=== PATIENT | male | born 1970 | race Caucasian/White ===

== ENCOUNTER → 2020-05-21 16:11 | Outpatient (CLI) | payer MEDICARE, SELFPAY ==
[2020-05-21 16:59] LABS: Basophils # 0.1 K/mm3 (0-0.2); Basophils % 0.9 % (0.1-2.0); Eosinophils # 0.2 K/mm3 (0.0-0.4); Eosinophils % 1.7 % (0.1-12.0); Hematocrit 48.4 % (42.0-52.0); Hemoglobin 15.9 g/dL (14.1-18.0); Lymphocytes # 4.6 K/mm3 (0.7-4.5); Lymphocytes % 38.7 % (10-50); Mean Corpuscular HGB Conc 32.9 g/dL (31.8-35.4); Mean Corpuscular Hemoglobin 32.5 pg (27.0-31.2); Mean Platelet Volume 8.5 fl (7.4-10.4); Monocytes # 0.9 K/mm3 (0.1-1.0); Monocytes % 7.5 % (1.7-9.3); Neutrophils # 6.1 K/mm3 (1.8-7.8); Neutrophils % 51.3 % (37.0-80.0); Platelet Count 323 K/mm3 (142-424); Red Blood Count 4.89 M/mm3 (4.60-6.20); Red Cell Distribution Width 13.7 % (11.5-17.5); White Blood Count 11.8 K/mm3 (4.8-10.8)
[2020-05-21 17:07] LABS: Alanine Aminotransferase 45 U/L (12-78); Albumin Level 4.5 g/dl (3.5-5.0); Albumin/Globulin Ratio 1.4 (1.1-1.8); Alkaline Phosphatase 80 U/L (38-126); Anion Gap 14.7 mEq/L (5-15); Aspartate Amino Transferase 28 U/L (17-59); Bilirubin,Total 0.6 mg/dl (0.2-1.3); Blood Urea Nitrogen 10 mg/dl (9-20); Calcium 10.1 mg/dl (8.4-10.2); Carbon Dioxide 26 mmol/L (22.0-30.0); Chloride 103 mmol/L (98-107); Chol/HDL Ratio 2.8 (1-3.5); Cholesterol 141 mg/dl (140-200); Estimated Glomerular Filt Rate 102 ml/min (>60); GFR (African American) 123 ML/MIN (>60); Globulin 3.2 g/dL (1.3-3.2); Glucose 98 mg/dl (74-100); HDL Cholesterol 51 mg/dl (40-60); Potassium 4.7 mmoL/L (3.5-5.1); Sodium 139 mmol/L (136-145); Total Protein,Serum 7.7 g/dl (6.3-8.2); Triglycerides 127 mg/dl (30-150); VLDL Cholesterol 25 mg/dL (0-40)
[2020-05-21 17:18] LABS: Direct LDL Cholesterol 67.81 mg/dL (100-129)
[2020-05-21 19:13] LABS: T4 (Thyroxine) 9.9 ug/dl (5.53-11.0)
[2020-05-21 19:27] LABS: Thyroid Stimulating Hormone 2.96 uIU/mL (0.465-4.68)
== END ==
PROVIDERS: Visit Provider Family Medicine
DX: I25.10 Atherosclerotic heart disease of native coronary artery without angina pectoris (principal); R53.83 Other fatigue; G51.8 Other disorders of facial nerve
CPT/HCPCS: 80053; 80061; 84436; 84443; 85025

== ENCOUNTER → 2020-06-03 09:21 | Outpatient (CLI) | payer MEDICARE, SELFPAY ==
--- NOTE | 2020-06-03 09:21 | CT_ITS ---
PROCEDURE: CT CHEST W CON CLINCAL INDICATION: Soa asbestos exposure Chest pressure Pain bilateral cough smoker COMPARISON: No exams were available for comparison TECHNIQUE: IV Contrast: 75ml Isovue 370 Axial images obtained with sagittal and coronal reformats. All CT scans at the facility use one or more dose reduction, viz: automated exposure control, ma/kV adjustment per patient size (including targeted exams where dose is matched to indication, i.e. head), or iterative reconstruction technique. FINDINGS: HEART AND MEDIASTINAL STRUCTURES: Coronary artery calcifications and/or stents are present. No mediastinal or hilar mass. LUNGS AND PLEURAL SPACES: COPD changes. There is some pleural thickening and pleural calcification in the right upper lobe laterally. There is some minimal scarring in the lung apices. Old granulomatous disease present with calcified granulomas. No diaphragmatic calcified plaques. No effusions. No suspicious pulmonary nodules. BONY STRUCTURES: No acute bony abnormalities apparent. UPPER ABDOMEN: Mild atheromatous changes involve the ostium of the celiac artery with less than 50 percent stenosis. There is a 1.6 cm cystic lesion in the tail the pancreas. ADDITIONAL FINDINGS: No other significant abnormalities. IMPRESSION: 1. COPD with scattered areas of scarring. There is some pleural thickening noted in the right upper lobe laterally with calcification present at this region. This is not typical appearance for a calcified pleural plaque as there is fat density between the calcification in the pleura. Consider follow-up to confirm stability in this patient with history of asbestos exposure. 2. Indeterminate 1.6 cm cystic lesion of the tail the pancreas. MRI without and with gadolinium enhancement with MRCP suggested for further evaluation Dictated by: Rafael Jack MD 06/05/2020 09:35 Rafael Jack MD in [facility] 06/05/2020 09:35
== END ==
LOC: RAD 09:21
PROVIDERS: PCP Family Medicine; Visit Provider Family Medicine
DX: R91.1 Solitary pulmonary nodule (principal); Z77.090 Contact with and (suspected) exposure to asbestos
CPT/HCPCS: 71260; Q9967

== ENCOUNTER → 2020-07-02 09:08 | Outpatient (CLI) | payer MEDICARE, SELFPAY ==
--- NOTE | 2020-07-02 09:09 | MR_ITS ---
PROCEDURE: MR ABDOMEN WO/W CON CLINICAL INDICATION: pancreas lesion seen on CT chest Abnormal CT scan 06-03-20. Complains of diarrhea with nausea x3-4yrs. 15ml prohance given. Lot:[id number] exp: Oct 2022. COMPARISON: CT CT CHEST W CON from 06/03/2020 TECHNIQUE: Routine multiplanar multi echo sequences are performed without and with gadolinium enhancement. MRCP images also performed. FINDINGS: There are scattered small cystic areas in the liver which are nonspecific. The spleen has an unremarkable appearance. A cystic lesion is present in the extreme tail of the pancreas measuring 14 mm by 14 mm. This is isointense on T1 and hyperintense on the T2 weighted images without obvious internal septations. There is a small peripheral capsule at this cystic area with similar enhancement as compared to the pancreas. The MRCP images are degraded by motion artifact. Pancreatic duct is not dilated cannot confirm if there is connection to the pancreatic duct due to the motion artifact. The CT scan does not demonstrate any calcification of the capsule. The gallbladder and biliary tree have an unremarkable appearance. There is a 7 mm right renal cyst. The adrenal glands have an unremarkable appearance. IMPRESSION: 14 mm cystic lesion in the pancreatic tail without obvious internal septations. There is a small thin capsule around the lesion at approximately 2 mm in thickness. Differential diagnosis would include a pseudo cyst, pancreatic cyst or an IPMN. Mucinous cystic pancreatic neoplasm could have this appearance however, this would be extremely rare in a male . Suggest [address] follow-up to confirm short term stability. Dictated by: Rafael Jack MD 07/04/2020 08:29 Rafael Jack MD in [facility] 07/04/2020 08:29
--- NOTE | 2020-07-02 09:25 | XR_ITS ---
PROCEDURE: XR ORBIT BILATERAL MIN 4V CLINICAL INDICATION: R/O METAL IN EYES PRIOR TO MRI COMPARISON: No exams were available for comparison TECHNIQUE: AP views are obtained of the orbits with the patient looking up and down. A lateral view is also obtained. FINDINGS: No radio opaque foreign bodies evident. No radio opaque foreign bodies evident within the orbits. There are postsurgical changes with surgical mesh and screws along the infraorbital rim as well as the medial and lateral wall of the right maxillary sinus. IMPRESSION: No radio opaque orbital foreign body identified. Dictated by: Rafael Jack MD 07/02/2020 09:54 Rafael Jack MD in [facility] 07/02/2020 09:54
== END ==
LOC: RAD 09:09
PROVIDERS: PCP Family Medicine; Visit Provider Family Medicine
DX: K86.9 Disease of pancreas, unspecified (principal); H05.53 Retained (old) foreign body following penetrating wound of bilateral orbits
CPT/HCPCS: 70200; 74183; 76376; A9576

== ENCOUNTER → 2020-09-20 13:54 | Outpatient (CLI) | payer MEDICARE, SELFPAY ==
[2020-09-20 14:34] LABS: Amphetamine/Metha Screen,Urine Negative ng/ml (<1000)
[2020-09-20 14:35] LABS: Barbiturates Screen,Urine Negative ng/ml (<200); Benzodiazepines Screen,Urine Negative ng/ml (<200)
[2020-09-20 14:36] LABS: Cannabinoid Screen,Urine Negative ng/ml (<50)
[2020-09-20 14:37] LABS: Cocaine Screen,Urine Negative ng/ml (<300); Methadone Screen,Urine Negative ng/ml (<300)
[2020-09-20 14:38] LABS: Opiate Screen,Urine Negative ng/ml (<300)
[2020-09-20 14:41] LABS: Phencyclidine Screen,Urine Negative ng/ml (<25)
== END ==
PROVIDERS: Visit Provider Family Medicine
DX: Z79.899 Other long term (current) drug therapy (principal)
CPT/HCPCS: 80305

== ENCOUNTER → 2020-11-18 09:27 | Outpatient (CLI) | payer MEDICARE, SELFPAY ==
--- NOTE | 2020-11-18 09:28 | MR_ITS ---
PROCEDURE INFORMATION: Exam: MR Abdomen Without and With Contrast Exam date and time: 11/18/2020 9:28 AM Age: 50 years old Clinical indication: Abnormal findings; Abnormal radiologic finding of the abdomen; Radiologic exam and body structure: Mri; Additional info: Pancreas cyst/lesion. F/u abnormal mri 07-02-20. Diarrhea. 14ml prohance given. TECHNIQUE: Imaging protocol: MR of the abdomen without and with intravenous contrast. Contrast material: PROHANCE; Contrast volume: 14 ml; Contrast route: IV; COMPARISON: MR ABDOMEN WO/W CON 07/02/2020 9:19 AM FINDINGS: Liver: An ill-defined focus of enhancement is seen in the liver in subsegment 7. It measures on the order of 15 mm. It correlates with the finding seen on the prior MR and CT from June and May 2020 respectively. However, motion artifact limits further characterization. Gallbladder and bile ducts: Unremarkable. No stones. No ductal dilation. Pancreas: There is a cystic lesion arising from the tail the pancreas with a thin T1 intense rim. No change in appearance. No change in size, it again measures about 14 x 14 mm. Spleen: Unremarkable. No splenomegaly. Adrenal glands: Unremarkable. No mass. Kidneys and ureters: Unchanged 9 mm cyst in the right kidney toward the lower pole. Stomach and bowel: Visualized stomach and intestines are unremarkable. Intraperitoneal space: No free fluid. Arteries: No abdominal aortic aneurysm. Bones/joints: Unremarkable. Soft tissues: Unremarkable. IMPRESSION: 1. Stable 14 mm cystic lesion arising from tail the pancreas. Reimaging every 1 year for 5 years is recommended. (Reference: Allegra, 2017) 2. An ill-defined enhancing lesion is seen in hepatic subsegment 7. Further characterization with CT liver protocol is recommended because motion artifact due to its location under the diaphragm is limiting its characterization on MR. References: Allegra DAILY, et al. Management of Incidental Pancreatic Cysts: A White Paper of the ACR Incidental Findings Committee. J Am Jluis Radiol. 2017;14(7):911-923.
== END ==
LOC: RAD 09:28
PROVIDERS: PCP Family Medicine; Visit Provider Family Medicine
DX: K86.9 Disease of pancreas, unspecified (principal)
CPT/HCPCS: 74183; 76376; A9576

== ENCOUNTER → 2020-12-18 09:30 | Outpatient (CLI) | payer MEDICARE, SELFPAY ==
--- NOTE | 2020-12-18 09:31 | CT_ITS ---
PROCEDURE INFORMATION: Exam: CT Abdomen Without And With Contrast, Liver Exam date and time: 12/18/2020 9:31 AM Age: 50 years old Clinical indication: Abnormal findings; Abnormal radiologic finding of the abdomen; Radiologic exam and body structure: Mri abdomen; Additional info: Liver lesion/ abn mri TECHNIQUE: Imaging protocol: Computed tomography images of the abdomen without and with intravenous contrast. Radiation optimization: All CT scans at this facility use at least one of these dose optimization techniques: automated exposure control; mA and/or kV adjustment per patient size (includes targeted exams where dose is matched to clinical indication); or iterative reconstruction. Contrast material: ISOVUE; Contrast volume: 75 ml; Contrast route: IV; COMPARISON: 1. MR ABDOMEN WO/W CON 11/18/2020 10:34 AM 2. MR ABDOMEN WO/W CON 07/02/2020 9:19:[address] CHEST W CON 06/03/2020 9:42:41 AM FINDINGS: Liver: No liver mass, the enhancing lesion or region in the right lobe of the liver seen on the prior MRI is not discretely identified. Gallbladder and bile ducts: Normal. No calcified stones. No ductal dilation. Pancreas: Stable examination without interval change. Benign 1.6 cm cyst in the pancreatic tail. No pancreatic atrophy or ductal dilatation. Spleen: Normal. No splenomegaly. Adrenals: Normal. No mass. Kidneys and ureters: Normal. No hydronephrosis. Stomach and bowel: Normal. No obstruction. No mucosal thickening. Intraperitoneal space: Unremarkable. No free air. No significant fluid collection. Lymph nodes: Unremarkable. No enlarged lymph nodes. Vasculature: Unremarkable. No abdominal aortic aneurysm. Bones/joints: Unremarkable. No acute fracture. No dislocation. Soft tissues: Unremarkable. IMPRESSION: Stable benign cyst in the distal pancreatic tail. No hepatic mass.
== END ==
LOC: RAD 09:31
PROVIDERS: PCP Family Medicine; Visit Provider Family Medicine
DX: K76.9 Liver disease, unspecified (principal)
CPT/HCPCS: 74170; Q9967

== ENCOUNTER → 2021-09-10 07:08 | Outpatient (CLI) | payer MEDICARE, MEDICAID, SELFPAY ==
[2021-09-09 18:56] LABS: Hemoglobin A1C 5.6 % (4.0-6.0)
== END ==
PROVIDERS: PCP Family Medicine; Visit Provider Family Medicine
DX: E11.9 Type 2 diabetes mellitus without complications (principal)
CPT/HCPCS: 83036

== ENCOUNTER → 2022-05-08 06:29 | Outpatient (CLI) | payer MEDICARE, MEDICAID, SELFPAY ==
--- NOTE | 2022-05-08 06:36 | NM_ITS ---
APPROVED REPORT Exam: Nuclear Stress Test Indication: chest pain..short of breath Patient Location: Outpatient Stress Tech: Gaby Enriquez SC Tech:GAIL Knutson RT(R)(N) Ht: 5 ft 7 in Wt: 165 lbs HR: 60 bpm BP: 148/91 mmHg BSA: 1.86 m2 TID: 1.12 BMI: 25.8 History: chest pain..short of breath Procedure: Patient exercised on Jose L protocol 9:44 minutes and sec, resting heart rate 60 bpm, resting blood pressure 148/91 mmHg, with exercise maximum heart rate achived was 134 bpm which is 80 % of the maximum predicted heart rate and blood pressure was 190/92 mmHg. Patient has Adequate exercise capacity, achieved 10.0 METs of workload on treadmill, the blood pressure response to exercise was Adequate. Electrocardiogram Resting electrocardiogram shows sinus rhythm, with exercise there is no 1.[address] segment depression noted from the baseline EKG. The EKG portion of the exercise Myoview was nondiagnostic as patient did not achieve the target heart rate. Cardiac Stress and Resting SPECT Images: Cardiac Stress and Resting SPECT images were obtained using technetium 99m Myoview 32.5 mCi stress and 10.43 mCi at rest. Gated SPECT analysis of segmental wall motion and calculation of the ejection fraction also done. Prone images were also obtained. Cardiac stress and rest SPECT images show partially reversible defect involving the inferior wall, consistent with mixed ischemia and scar, computer derived ejection fraction is 52% with mild inferior wall hypokinesis, right ventricle is moderately enlarged with normal contractility. Conclusion: 1. The EKG portion of the exercise Myoview was nondiagnostic as patient did not achieve the target heart rate, patient has good exercise capacity achieved 10 METS of workload on treadmill, the blood pressure response to exercise was adequate, patient complained shortness of breath and chest tightness with peak exercise. 2. Scintigraphic evidence of mixed ischemia and scar involving the inferior wall, computer derived ejection fraction is 52% with segmental wall motion abnormality described above, right ventricle is moderately enlarged with normal contractility. 3. Abnormal exercise Myoview study. Electronically signed by : Kartik White MD 05/08/2022 11:47:00
--- NOTE | 2022-05-08 07:33 | CA_ITS ---
APPROVED REPORT EXAM: Comprehensive 2D, Doppler, and color-flow Echocardiogram Career Consultant: Rosalba Henriquez RDCS Ht: 5 ft 7 in Wt: 164lbs BSA: 1.86 BP: 152/95 mmHg Indications: CP CAD HTN 2D Dimensions LVOT 1.99 cm (M/F) 1.5-2.5 M-Mode Dimensions RVDd 2.49 cm (0.9-2.6) LA Diam 3.47 cm (1.9-4.0) LVDd 5.35 cm (3.5-5.7) Ao Diam 3.35 cm (2.0-3.7) LVDs 4.30 cm (3.5-5.7) IVSd 0.76 cm (0.6-1.1) PWd 0.76 cm (0.6-1.1) EF (Teich) 39.90% FS 19.60% EDV (Teich) 138.30 mL ESV (Teich) 83.10 mL LV Diastology E Decel Time 170.00 (160-240 msec) E/A Ratio 1.4 MED E' 9.00 (< 7 cm/sec) E'/MED E' Ratio 8.06 (>14) LAT E' 10.80 (<10 cm/sec) E/LAT E' Ratio 6.71 (>14) Mitral Valve MV E Max Blas. 73.00 (40-130 cm/s) MV A Velocity 53.00 (40-130 cm/s) E/A Ratio 1.37 MV Decel. Time 170.00 (160-240 ms) MV PHT 50.00 ms Left Ventricle Left atrium is normal size, left ventricle is normal size, estimated ejection fraction 50% with no regional wall motion abnormality, diastolic parameters are within normal range. Right Ventricle Right atrium and right ventricular normal size and contractility. Aortic Valve Aortic valve is grossly normal and there is no aortic stenosis or aortic insufficiency. Mitral Valve Mitral valve is grossly normal, there is trace mitral regurgitation. Tricuspid Valve Tricuspid valve grossly normal, there is trace tricuspid regurgitation, tricuspid regurgitation jetinadequate for calculation of the right ventricular systolic pressure. Pulmonic Valve Pulmonic valve is poorly visualized. Great Vessels Aortic root is normal size. Inferior vena cava is poorly visualized. Pericardium No significant pericardial effusion noted. Conclusion 1. Normal left ventricular size, preserved left ventricular systolic function, estimated ejection fraction 50% with no regional wall motion abnormality. Diastolic parameters are within normal range. 2. Trace mitral and tricuspid regurgitation. 3. No significant pericardial effusion noted. 4. Inferior vena cava is poorly visualized. Electronically signed by : Kartik White MD 05/08/2022 18:20:24
--- NOTE | 2022-05-08 08:06 | CA_ITS ---
APPROVED REPORT Exam: Exercise Treadmill Technologist: Gaby Weir, Ht: 5 ft 7 in Wt: 164 lbs BSA: 1.86 m2 HR: 56 bpm BP: 149/75 mmHg Medical History Medications: Omeprazole,,,,, Aspirin,,,,, Losartan,,,,, VitB12,,,,, RoSUVASTATIN,,,,, Prasugrel,,,,, Clobetasol,,,,, Hydrocodone-Acetaminophen,,,,, Furosemide,,,,, Stress Test Details Test: Jose L HR Resting HR: 60 bpm Max Heart Rate (APMHR): 167.611054 bpm Max HR Achieved: 134 bpm Target HR (85% APMHR): 141.601376 bpm % of APMHR: 80.24 Recovery HR: 72 bpm BP Resting BP: 148/91 mmHg Max BP: 190/92 mmHg Recovery BP: 141.0/73.0 mmHg ECG Resting ECG: sinus bradycardia Clinical Exercise duration: 09:44 min Highest Stage Achieved: III Exercise capacity: 10.1 METs Stress ECG Conclusion Test stopped due to: SOA/leg fatigue Symptoms: SOA & chest pain with peak exercise Arrhythmias/Ectopy: PAC noted. lots of motion artifact. Test Summary REST . . . . . . . Standing REST 01:02 0.0 0.0 60 . 148/ 91 . . Stage 1 01:00 10.0 1.7 84 . . . . Stage 1 02:00 10.0 1.7 90 . . . . Stage 1 03:00 10.0 1.7 92 . . . . Stage 2 01:00 12.0 2.5 94 . . . . Stage 2 02:00 12.0 2.5 95 . 162/ 84 . . Stage 2 03:00 12.0 2.5 98 . 162/ 84 . . Stage 3 01:00 14.0 3.4 103 . . . . Stage 3 02:00 14.0 3.4 117 . . . . Stage 3 03:00 14.0 3.4 105 . 190/ 92 . . Stage 4 . . . . . . . Myoview Injected Stage 4 00:44 16.0 4.2 114 . . . Stop exercise at 09:44 RECOVERY 01:00 0.0 0.0 94 . . . . RECOVERY 02:00 0.0 0.0 91 . 156/ 90 . . RECOVERY 03:00 0.0 0.0 80 . 152/ 75 . . RECOVERY 03:48 0.0 0.0 74 . 141/ 73 . . Electronically signed by : Kartik White MD 05/08/2022 11:42:36
--- NOTE | 2022-05-08 09:27 | XR_ITS ---
FINAL REPORT CLINICAL HISTORY: cp/sob FINDINGS: 2 views of the chest were obtained . The heart is normal in size. Calcified left hilar lymph node is seen. The mediastinum is within normal limits. There is a calcified granuloma in the left midlung. The lungs are otherwise clear. There is no pneumothorax. Osseous structures are unremarkable. IMPRESSION: No acute cardiopulmonary process. Reviewed, Interpreted and Dictated by Branden Calvillo MD Transcribed by Monica Malagon Authenticated and . [facility]
[2022-05-08 10:32] LABS: Basophils # 0.1 K/mm3 (0-0.2); Basophils % 1.2 % (0.1-2.0); Eosinophils # 0.1 K/mm3 (0.0-0.4); Eosinophils % 1.3 % (0.1-12.0); Hematocrit 46.3 % (42.0-52.0); Hemoglobin 14.9 g/dL (14.1-18.0); Lymphocytes # 3.6 K/mm3 (0.7-4.5); Lymphocytes % 32.5 % (10-50); Mean Corpuscular HGB Conc 32.2 g/dL (31.8-35.4); Mean Corpuscular Hemoglobin 30.7 pg (27.0-31.2); Mean Corpuscular Volume 95.4 fl (80-94); Mean Platelet Volume 8.3 fl (7.4-10.4); Monocytes # 0.6 K/mm3 (0.1-1.0); Monocytes % 5.6 % (1.7-9.3); Neutrophils # 6.6 K/mm3 (1.8-7.8); Neutrophils % 59.4 % (37.0-80.0); Platelet Count 295 K/mm3 (142-424); Red Blood Count 4.85 M/mm3 (4.60-6.20); Red Cell Distribution Width 13.2 % (11.5-17.5); White Blood Count 11.1 K/mm3 (4.8-10.8)
[2022-05-08 11:19] LABS: Alanine Aminotransferase 34 U/L (12-78); Albumin Level 4.4 g/dl (3.5-5.0); Alkaline Phosphatase 75 U/L (38-126); Anion Gap 10.8 mEq/L (5-15); Aspartate Amino Transferase 23 U/L (17-59); Bilirubin,Direct 0.2 mg/dl (0.0-0.4); Bilirubin,Indirect 0.5 mg/dL (0.0-0.9); Bilirubin,Total 0.7 mg/dl (0.2-1.3); Bilirubin,Unconjugated 0.5 mg/dL (0.0-1.1); Blood Urea Nitrogen 11 mg/dl (9-20); Calcium 9.3 mg/dl (8.4-10.2); Carbon Dioxide 28 mmol/L (22.0-30.0); Chloride 105 mmol/L (98-107); Chol/HDL Ratio 2.8 (1-3.5); Cholesterol 111 mg/dl (140-200); Estimated Glomerular Filt Rate 118 ml/min (>60); GFR (African American) 143 ML/MIN (>60); Glucose 103 mg/dl (74-100); HDL Cholesterol 40 mg/dl (40-60); Potassium 4.8 mmoL/L (3.5-5.1); Sodium 139 mmol/L (136-145); Total Protein,Serum 7.2 g/dl (6.3-8.2); Triglycerides 138 mg/dl (30-150); VLDL Cholesterol 28 mg/dL (0-40)
[2022-05-08 11:35] LABS: Free T4 (Free Thyroxine) 0.92 ng/dl (0.78-2.19)
[2022-05-08 11:49] LABS: Prostate Specific Ag Screen 0.7 ng/ml (0.0-4.0)
[2022-05-08 12:24] LABS: Vitamin B12 717 pg/mL (239-931)
[2022-05-08 12:25] LABS: Folate 7.68 ng/mL
[2022-05-20 00:04] LABS: 1,25 Dihydroxy Vitamin D 42 pg/mL (.); 1,25-Dihydroxy, Vitamin D-2 <10 pg/mL (.); 1,25-Dihydroxy, Vitamin D-3 40 pg/mL (.)
== END ==
PROVIDERS: PCP Family Medicine; Visit Provider Nurse Practitioner Family
DX: R06.02 Shortness of breath; E78.2 Mixed hyperlipidemia; K86.2 Cyst of pancreas; Z72.0 Tobacco use; Z12.5 Encounter for screening for malignant neoplasm of prostate; I20.8 Other forms of angina pectoris
CPT/HCPCS: 36415; 71046; 78452; 80048; 80061; 80076; 82607; 82652; 82746; 84439; 84443; 85025; 93017; 93306; G0103; A9502

== ENCOUNTER 2022-10-06 07:52 | Day surgery (SDC) | payer MEDICARE, MEDICAID, SELFPAY ==
[2022-10-06] VITALS (13 sets, daily range): BP systolic 100–145; BP diastolic 53–94; PULSE 58–81; RESP 15–19; O2SAT 90–98; BMI 25.7
--- NOTE | 2022-10-06 07:39 | IR_ITS ---
APPROVED REPORT Patient Location: Outpatient Charge Poster: GAIL Farias RT (R) PROCEDURES Left heart catheterization Left ventriculogram Selective coronary angiogram INDICATION Abnormal Myoview, Angina pectoris Informed consent was obtained prior to the procedure. COMPLICATIONS None Estimated Blood Loss: Less than 10 mls TECHNIQUE One percent lidocaine used to anesthetize the right anterior aspect of the wrist. The right radial artery was accessed via the Seldinger technique. A 6 Palestinian sheath was placed in the right radial artery. 150 mg magnesium sulfate, 800 mcg of nitroglycerin, 1mg Lidocaine and 5000 U Heparin were given through the arterial sheath. The papa catheter was also used to perform left heart catheterization, left ventriculogram and selective coronary angiogram. At the end of the procedure the sheath was removed good hemostasis was achieved using Traclet band, patient was transferred to the postop holding area in stable condition. ANGIOGRAPHIC RESULTS The left main artery Normal The left anterior descending artery Has proximal 10% luminal irregularities with a large stent in the mid segment which has 40% eccentric in-stent restenosis. There is excellent proximal distal transitioning. The entire vessel has slow MATT II flow The circumflex artery Is likely a codominant vessel and has proximal 10% luminal irregularities with 20 and 30% stenoses in a large second obtuse marginal artery. The first obtuse marginal artery is small to medium and has a proximal eccentric 40% stenosis The right coronary artery Is codominant and has 10 contiguous stenting from the ostial through the distal segment. The ostial segment has an eccentric 40% stenosis while the mid vessel has a concentric 40 to 50% stenosis. There is excellent distal transitioning. MATT II flow was present down the vessel The RICHARDSON ventriculogram reveals Normal 65% The left ventricular end-diastolic pressure 20 mmHg IMPRESSION Coronary disease as described above Slow flow down the LAD and right coronary artery consistent with endothelial dysfunction Elevated LVEDP Patient angina stems from microvascular etiologies secondary to endothelial dysfunction as result of tobacco usage PLAN 1. Add Norvasc 2.5 mg daily 2. Start Ranexa 500 twice daily and uptitrate as tolerated 3. Aggressive risk factor modification 4. It is important for patient to discontinue tobacco usage which is the likely etiology for the ongoing angina Electronically signed by : Rigoberto Stovall MD 10/06/2022 13:50:06
[2022-10-06 08:52] LABS: Basophils # 0.1 K/mm3 (0-0.2); Basophils % 1.5 % (0.1-2.0); Eosinophils # 0.2 K/mm3 (0.0-0.4); Eosinophils % 2.4 % (0.1-12.0); Hematocrit 49.8 % (42.0-52.0); Hemoglobin 16.1 g/dL (14.1-18.0); Lymphocytes # 3.6 K/mm3 (0.7-4.5); Lymphocytes % 44.5 % (10-50); Mean Corpuscular HGB Conc 32.2 g/dL (31.8-35.4); Mean Corpuscular Hemoglobin 30.4 pg (27.0-31.2); Mean Corpuscular Volume 94.2 fl (80-94); Monocytes # 0.7 K/mm3 (0.1-1.0); Monocytes % 8.4 % (1.7-9.3); Neutrophils # 3.4 K/mm3 (1.8-7.8); Neutrophils % 43.1 % (37.0-80.0); Platelet Count 248 K/mm3 (142-424); Red Blood Count 5.28 M/mm3 (4.60-6.20); Red Cell Distribution Width 13.4 % (11.5-17.5)
[2022-10-06 08:55] LABS: Chloride 102 mmol/L (98-107); Potassium 4.3 mmoL/L (3.5-5.1); Sodium 139 mmol/L (136-145)
[2022-10-06 08:58] LABS: Anion Gap 11.3 mEq/L (5-15); Blood Urea Nitrogen 9 mg/dl (9-20); Calcium 9.2 mg/dl (8.4-10.2); Carbon Dioxide 30 mmol/L (22.0-30.0); Creatinine Clearance Estimated 128 mL/min (50-200); Estimated Glomerular Filt Rate 118 ml/min (>60); GFR (African American) 143 ML/MIN (>60); Glucose 118 mg/dl (74-100)
== END 2022-10-06 13:11 | disposition home or self-care (01) ==
PROVIDERS: PCP Family Medicine; Visit Provider Internal Medicine
DX: I25.119 Atherosclerotic heart disease of native coronary artery with unspecified angina pectoris (principal); E78.5 Hyperlipidemia, unspecified; I10 Essential (primary) hypertension; I25.10 Atherosclerotic heart disease of native coronary artery without angina pectoris; R00.1 Bradycardia, unspecified; R06.02 Shortness of breath; R42 Dizziness and giddiness; R94.30 Abnormal result of cardiovascular function study, unspecified; Z95.5 Presence of coronary angioplasty implant and graft; F17.210 Nicotine dependence, cigarettes, uncomplicated; E78.2 Mixed hyperlipidemia
CPT/HCPCS: 80048; 85025; 93458; 99152; C1725; C1769; J1644; Q9967

== ENCOUNTER → 2022-11-12 23:36 | Outpatient (CLI) | payer MEDICARE, MEDICAID, SELFPAY ==
[2022-11-14 10:12] LABS: Testosterone,Total 581 ng/dL (264-916)
== END ==
PROVIDERS: PCP Family Medicine; Visit Provider Family Medicine
DX: R68.82 Decreased libido (principal)
CPT/HCPCS: 84403

== ENCOUNTER → 2023-01-08 23:26 | Outpatient (CLI) | payer MEDICARE, MEDICAID, SELFPAY ==
[2023-01-08 20:04] LABS: Barbiturates Screen,Urine Negative ng/ml (<200)
[2023-01-08 20:05] LABS: Amphetamine/Metha Screen,Urine Negative ng/ml (<1000); Cannabinoid Screen,Urine Negative ng/ml (<50)
[2023-01-08 20:06] LABS: Benzodiazepines Screen,Urine Negative ng/ml (<200); Methadone Screen,Urine Negative ng/ml (<300)
[2023-01-08 20:07] LABS: Cocaine Screen,Urine Negative ng/ml (<300)
[2023-01-08 20:08] LABS: Phencyclidine Screen,Urine Negative ng/ml (<25)
[2023-01-08 20:09] LABS: Opiate Screen,Urine Positive ng/ml (<300)
== END ==
PROVIDERS: PCP Family Medicine; Visit Provider Family Medicine
DX: Z79.899 Other long term (current) drug therapy (principal)
CPT/HCPCS: 80305

== ENCOUNTER → 2023-03-08 23:57 | Outpatient (CLI) | payer MEDICARE, MEDICAID, SELFPAY ==
[2023-03-08 19:56] LABS: Benzodiazepines Screen,Urine Negative ng/ml (<200)
[2023-03-08 19:57] LABS: Amphetamine/Metha Screen,Urine Negative ng/ml (<1000)
[2023-03-08 19:58] LABS: Barbiturates Screen,Urine Negative ng/ml (<200); Methadone Screen,Urine Negative ng/ml (<300)
[2023-03-08 19:59] LABS: Cannabinoid Screen,Urine Negative ng/ml (<50)
[2023-03-08 20:00] LABS: Cocaine Screen,Urine Negative ng/ml (<300)
[2023-03-08 20:01] LABS: Opiate Screen,Urine Positive ng/ml (<300); Phencyclidine Screen,Urine Negative ng/ml (<25)
== END ==
PROVIDERS: PCP Family Medicine; Visit Provider Family Medicine
DX: Z79.899 Other long term (current) drug therapy (principal)
CPT/HCPCS: 80305

== ENCOUNTER 2023-04-28 19:17 | Outpatient (CLI) | payer MEDICARE, MEDICAID, SELFPAY ==
[2023-04-28 18:27] LABS: Basophils # 0.1 K/mm3 (0-0.2); Basophils % 1.2 % (0.1-2.0); Eosinophils # 0.3 K/mm3 (0.0-0.4); Eosinophils % 2.3 % (0.1-12.0); Hematocrit 48.8 % (42.0-52.0); Hemoglobin 16.2 g/dL (14.1-18.0); Lymphocytes # 3.9 K/mm3 (0.7-4.5); Lymphocytes % 35.7 % (10-50); Mean Corpuscular HGB Conc 33.3 g/dL (31.8-35.4); Mean Corpuscular Hemoglobin 32.4 pg (27.0-31.2); Mean Corpuscular Volume 97.5 fl (80-94); Mean Platelet Volume 9.5 fl (7.4-10.4); Monocytes # 0.8 K/mm3 (0.1-1.0); Monocytes % 7.3 % (1.7-9.3); Neutrophils # 5.8 K/mm3 (1.8-7.8); Neutrophils % 53.4 % (37.0-80.0); Platelet Count 247 K/mm3 (142-424); Red Cell Distribution Width 13.3 % (11.5-17.5); White Blood Count 10.8 K/mm3 (4.8-10.8)
[2023-04-28 18:34] LABS: Alanine Aminotransferase 26 U/L (12-78); Albumin Level 4.4 g/dl (3.5-5.0); Albumin/Globulin Ratio 1.5 (1.1-1.8); Alkaline Phosphatase 95 U/L (38-126); Anion Gap 9.1 mEq/L (5-15); Aspartate Amino Transferase 27 U/L (17-59); Bilirubin,Total 0.8 mg/dl (0.2-1.3); Blood Urea Nitrogen 8 mg/dl (9-20); Calcium 9.4 mg/dl (8.4-10.2); Carbon Dioxide 27 mmol/L (22.0-30.0); Chloride 106 mmol/L (98-107); Chol/HDL Ratio 3.6 (1-3.5); Cholesterol 122 mg/dl (140-200); Estimated Glomerular Filt Rate 101 ml/min (>60); GFR (African American) 122 ML/MIN (>60); Glucose 114 mg/dl (74-100); HDL Cholesterol 34 mg/dl (40-60); Potassium 4.1 mmoL/L (3.5-5.1); Sodium 138 mmol/L (136-145); Total Protein,Serum 7.4 g/dl (6.3-8.2); Triglycerides 133 mg/dl (30-150); VLDL Cholesterol 27 mg/dL (0-40)
[2023-04-28 18:45] LABS: Direct LDL Cholesterol 70.62 mg/dL (100-129)
== END 2023-04-28 23:59 ==
LOC: LAB.DROPOF 19:18
PROVIDERS: PCP Family Medicine; Visit Provider Family Medicine
DX: R53.83 Other fatigue (principal); E78.5 Hyperlipidemia, unspecified; Z79.899 Other long term (current) drug therapy; Z12.5 Encounter for screening for malignant neoplasm of prostate
CPT/HCPCS: 80053; 80061; 85025

== ENCOUNTER 2023-06-02 14:57 | Outpatient (CLI) | payer MEDICARE, MEDICAID, SELFPAY ==
--- NOTE | 2023-06-02 14:57 | CT_ITS ---
FINAL REPORT TECHNIQUE: Axial CT images of the chest were obtained without contrast. Low-dose protocol was utilized. This study was performed with techniques to keep radiation doses as low as reasonably achievable (ALARA). Individualized dose reduction techniques using automated exposure control or adjustment of mA and/or kV according to the patient's size were employed. CLINICAL HISTORY: lung cancer screening CURRENT SMOKER, 1 PPD X 35 YEARS COMPARISON: None FINDINGS: CT CHEST WITHOUT, LOW DOSE SCREENING CT Di Vol: 2.90 mGy DLP: 107.33 mGy*cm There is no axillary, mediastinal, or hilar adenopathy. The heart size is normal. There is no pleural or pericardial effusion. The lung windows show mild emphysema and mild scarring. There is right lateral pleural thickening and pleural calcification. There are several calcified granulomas in the left lung. There is a 3 mm pleural-based nodule in the left lower lobe best seen on image 43. Limited images of the upper abdomen demonstrate no acute finding. IMPRESSION: LR Category 2: 12 month follow-up low-dose chest CT is recommended. Reviewed, Interpreted and Dictated by Sarthak Yanez III, MD Transcribed by Kathy Quinn Authenticated and [facility]
== END 2023-06-02 23:59 ==
LOC: RAD 14:57
PROVIDERS: PCP Family Medicine; Visit Provider Family Medicine
DX: F17.210 Nicotine dependence, cigarettes, uncomplicated (principal)
CPT/HCPCS: 71271

== ENCOUNTER 2024-08-14 14:41 | Outpatient (CLI) | payer MEDICARE, SELFPAY ==
--- NOTE | 2024-08-14 15:15 | CA_ITS ---
FINAL REPORT CLINICAL HISTORY: CAD, HLD, smoker, HTN, fatigue. COMPARISON: None FINDINGS: RIGHT CAROTID: CCA PSV -105 cm/sec ICA PSV -82 cm/sec ICA/CCA PSV ratio -0.9. Comments: No significant plaque disease is noted. LEFTCAROTID: CCA PSV -112. cm/sec ICA PSV -104. cm/sec ICA/CCA PSV ratio -1.0. Comments: No significant plaque disease is noted. Antegrade flow is seen within the vertebral arteries. IMPRESSION: Carotid stenosis classified less than 50% Reviewed, Interpreted and Dictated by Kirill Brown MD Transcribed by Cheri Dubon Authenticated and [facility]
== END 2024-08-14 23:59 | disposition home or self-care (01) ==
LOC: RT 14:42
PROVIDERS: PCP Family Medicine; Visit Provider Physician Assistant
DX: I65.23 Occlusion and stenosis of bilateral carotid arteries (principal); I25.10 Atherosclerotic heart disease of native coronary artery without angina pectoris; E78.5 Hyperlipidemia, unspecified; F17.200 Nicotine dependence, unspecified, uncomplicated; I10 Essential (primary) hypertension
CPT/HCPCS: 93880

== ENCOUNTER 2025-02-16 11:39 | Outpatient (CLI) | payer MEDICARE, SELFPAY ==
[2025-02-16 16:34] LABS: Alanine Aminotransferase 33 U/L (12-78); Albumin Level 4.7 g/dl (3.5-5.0); Albumin/Globulin Ratio 1.7 (1.1-1.8); Alkaline Phosphatase 92 U/L (38-126); Anion Gap 11.6 mEq/L (5-15); Aspartate Amino Transferase 28 U/L (17-59); Bilirubin,Total 0.9 mg/dl (0.2-1.3); Blood Urea Nitrogen 13 mg/dl (9-20); Calcium 9.8 mg/dl (8.4-10.2); Carbon Dioxide 22 mmol/L (22.0-30.0); Chloride 104 mmol/L (98-107); Cholesterol 104 mg/dl (140-200); Creatinine,Serum 0.70 mg/dl (0.66-1.25); Estimated Glomerular Filt Rate 117 ml/min (>60); GFR (African American) 142 ML/MIN (>60); Globulin 2.8 g/dL (1.3-3.2); Glucose 106 mg/dl (74-100); HDL Cholesterol 57 mg/dl (40-60); Potassium 4.6 mmoL/L (3.5-5.1); Sodium 133 mmol/L (136-145); Total Protein,Serum 7.5 g/dl (6.3-8.2); Triglycerides 76 mg/dl (30-150)
[2025-02-16 17:23] LABS: Hepatitis C Ab Qual. W/ RFX NEGATIVE (Negative)
[2025-02-17 04:08] LABS: Hepatitis B Surface Antigen Negative (Negative)
--- OUTSIDE RECORDS SUMMARY | 2025-02-19 11:56 | XMS_ITS | Clinical Summary ---
Author Organization [facility] Address [address] [place] [address] Phone Care Team Providers Care Boot Trimmer Name Role Phone Prosper Russell MD Primary Care Provider Allergies No known active allergies Medical History Medical History Date Comments Hypertension Social History Tobacco Use Types Packs/Day Years Used Date Smoking Tobacco: Every Day Sex and Gender Information Value Date Recorded Sex Assigned at Not on file Legal Sex Male 8:15 PM EDT Gender Identity Not on file Sexual Orientation Not on file Plan of Treatment Health Maintenance Due Date Last Done Comments Wellness Exam Medicare 1972 DTaP/TDaP/Td (1 - Tdap) 1988 Hepatitis B Vaccine (1 of 3 - 19+ 3-dose series) 1988 Cologuard 2014 Colon Cancer Screening 2014 Colonoscopy 2014 FIT 2014 Sigmoidoscopy 2014 Virtual Colonography 2014 Pneumococcal Vaccine 50+ (1 of 1 - PCV) 2019 Zoster (1 of 2) 2019 COVID-19 Vaccine ( - 2024-2 6 season) 2024 Influenza Vaccine (#1) 2024 Meningococcal B Vaccine Aged Out No l onger eligible based on patient's age to complete this topic Insurance [place] [address] MEDICAID [place] Care Teams Boot Trimmer Relationship Specialty Start Date End Date Prosper Russell MD PCP - General Family Medicine 04/20/12
== END 2025-02-16 23:59 ==
LOC: LAB.DROPOF 02-19 11:40
PROVIDERS: PCP Family Medicine; Visit Provider Family Medicine
DX: E78.2 Mixed hyperlipidemia (principal); Z12.5 Encounter for screening for malignant neoplasm of prostate; Z11.59 Encounter for screening for other viral diseases
CPT/HCPCS: 80053; 80061; 86803; 87340; 87389; G0103

== ENCOUNTER 2025-03-08 12:42 | Outpatient (CLI) | payer MEDICARE, MEDICAID, SELFPAY ==
--- NOTE | 2025-03-08 13:00 | MR_ITS ---
FINAL REPORT CLINICAL HISTORY: pain with limited ROM prior injury many years ago , worsening , limited rom COMPARISON: None FINDINGS: Multi planar MR imaging of the right shoulder was performed. There is localized deformity at the anterior insertion of the distal supraspinatus tendon. There is trace fluid in the subacromial/subdeltoid bursa. Findings are consistent with a partial full-thickness tear of the distal supraspinatus tendon. Linear abnormal signal in the anterior labrum is consistent with a tear. Posterior labrum intact. The subscapularis tendon is intact. The biceps tendon appears intact. Mild hypertrophic changes are noted of the acromioclavicular joint. There is mild edema in the distal clavicle. IMPRESSION: Partial full-thickness tear distal supraspinatus tendon. Linear tear anterior labrum. Reviewed, Interpreted and Dictated by Branden Calvillo MD Transcribed by Kathy Quinn Authenticated and [facility]
== END 2025-03-08 23:59 | disposition home or self-care (01) ==
LOC: RAD 12:42
PROVIDERS: PCP Family Medicine; Visit Provider Family Medicine
DX: M75.111 Incomplete rotator cuff tear or rupture of right shoulder, not specified as traumatic (principal); S43.491A Other sprain of right shoulder joint, initial encounter; G89.21 Chronic pain due to trauma
CPT/HCPCS: 73221